=== PATIENT | male | born 1990 | race Caucasian/White ===

== ENCOUNTER 2018-07-04 02:43 | Emergency (ER) | payer SELFPAY ==
[~2018-07-04] VITALS: Ht 170.2 cm; Wt 77.1 kg
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
--- NOTE | 2018-07-04 03:22 | NUR ---
PD AT BEDSIDE FOR EVAL
[2018-07-04] MEDS ORDERED: KETOROLAC TROMETHAMINE INJ 60 MG/2 ML VIAL IM ONE ×2 (03:54→04:00)
[2018-07-04] MEDS ORDERED: CARISOPRODOL 350 MG TABLET ONE (03:54)
[2018-07-04] MEDS ORDERED: CARISOPRODOL 350 MG TABLET PO ONE (04:00)
[2018-07-04 04:55] VITALS: BP 150/50
== END 2018-07-04 04:55 | disposition home or self-care (01) ==
LOC: ER 02:46
DX: S43.492A Other sprain of left shoulder joint, initial encounter (principal); S20.212A Contusion of left front wall of thorax, initial encounter; S00.83XA Contusion of other part of head, initial encounter; T24.102A Burn of first degree of unspecified site of left lower limb, except ankle and foot, initial encounter; V49.59XA Passenger injured in collision with other motor vehicles in traffic accident, initial encounter; X08.8XXA Exposure to other specified smoke, fire and flames, initial encounter; Y93.89 Activity, other specified; Y92.413 State road as the place of occurrence of the external cause; Y99.8 Other external cause status
CPT/HCPCS: 70450; 70486; 71100; 73030; 96372; 99284; A4606; J1885; Z7610; L0172